=== PATIENT | female | born 1990 | race Caucasian/White ===

== ENCOUNTER 2021-11-05 09:36 | Inpatient (IN) ==
[2021-11-05] MEDS ORDERED: *HR* Nalbuphine 10 MG/ML AMPUL IV PRN (10:07)
[2021-11-05] MEDS ORDERED: Ondansetron 4 MG/2 ML VIAL IVP PRN ×2 (10:07→11:25)
[2021-11-05] MEDS ORDERED: Metoclopramide 10 MG/2 ML VIAL IVP PRN (10:07)
[2021-11-05] MEDS ORDERED: Famotidine 20 MG/2 ML VIAL IVP PRN (10:07)
[2021-11-05] MEDS ORDERED: Lidocaine 1% 20 ML MDV ID PRN (10:07)
[2021-11-05] MEDS ORDERED: Azithromycin 500 MG in 0.9 % Sodium Chloride 250 ML IVPB PRN (10:07)
[2021-11-05] MEDS ORDERED: Naloxone 0.4 MG/ML INJ IVP PRN ×2 (10:07→11:25)
[2021-11-05] MEDS ORDERED: EPHEDrine 50 MG/ML VIAL IVP PRN (11:25)
[2021-11-05] MEDS ORDERED: Ropivacaine/PF 0.2% 20 ML VIAL EP ONE (11:25)
[2021-11-05] MEDS ORDERED: *HR* FentaNYL (PF) 100 MCG/2 ML VIAL EP ONE (11:25)
[2021-11-05] MEDS ORDERED: Epidural Premix (fent/bupiv) 110 ML EP SCH (11:30)
[2021-11-05 12:34] LABS: Basophils % 0.1 %; Eosinophils % 0.4 %; Hematocrit 41.2 % (35.3-44.9); Hemoglobin 13.9 g/dL (11.5-15.4); Immature Granulocytes % 0.4 % (0-4); Lymphocytes # 1.2 K/mcL (0.6-4.6); Mean Corpuscular HGB Conc 33.7 g/dL (31.6-35.5); Mean Corpuscular Hemoglobin 30.7 pg (28.0-33.3); Mean Corpuscular Volume 90.9 fL (83.0-100.0); Mean Platelet Volume 10.9 fL (9.4-12.4); Monocytes # 0.6 K/mcL (0.0-1.3); Monocytes % 7.9 %; Platelet Count 162 K/mcL (140-400); Red Blood Count 4.53 M/mcL (3.82-4.97); Red Cell Distribution Width 13.2 % (11.5-14.5); Segmented Neutrophils % 76.2 %; White Blood Count 7.9 K/mcL (4.3-11.1)
[2021-11-05 12:44] LABS: Amphetamine Screen,Urine Negative ng/mL (Cutoff=1000); Barbiturate Screen,Urine Negative ng/mL (Cutoff=200); Benzodiazepines Screen,Urine Negative ng/mL (Cutoff=200); Cannabinoid Screen,Urine Negative ng/mL (Cutoff = 50); Cocaine Screen,Urine Negative ng/mL (Cutoff= 300); Opiate Screen,Urine Negative ng/mL (Cutoff=300); Phencyclidine Screen,Urine Negative ng/mL (Cutoff=25)
[2021-11-05] MEDS ORDERED: Oxytocin 20 units/ LR 1000 mL 20 UNIT/1,000 ML BAG IVC ONE (13:08)
[2021-11-05 13:14] LABS: Influenza A PCR Negative (Negative); Influenza B PCR Negative (Negative); Resp. Syncytial Virus PCR Negative (Negative)
[2021-11-05 13:15] LABS: SARS-CoV-2 by PCR (In House) Negative (Negative)
[2021-11-05] MEDS: Ringers Solution, Lactated 1,000 ML IVC SCH ×2 (13:26→21:26)
[2021-11-05] MEDS ORDERED: Penicillin G Potassium 5,000,000 UNIT in 0.9 % Sodium Chloride Mini Bag 100 ML IVPB ONE (15:02)
[2021-11-05] MEDS ORDERED: Ropivacaine/PF 0.2% 20 ML VIAL ONE (18:38)
[2021-11-05] MEDS: Penicillin G Potassium 2,500,000 UNIT/105 ML MLS IVPB SCH (19:36)
[2021-11-06] MEDS: Penicillin G Potassium 2,500,000 UNIT/105 ML MLS IVPB SCH (00:11)
[2021-11-06] MEDS: Ringers Solution, Lactated 1,000 ML IVC SCH (03:34)
[2021-11-06] MEDS ORDERED: Oxytocin 20 units/ LR 1000 mL 20 UNIT/1,000 ML BAG IVC ONE ×2 (04:58→05:17)
[2021-11-06] MEDS ORDERED: Acetaminophen 325 MG TABLET PO SCH (05:17)
[2021-11-06] MEDS ORDERED: Rho Immune Globulin 1,500 UNIT SYRINGE IM PRN (05:17)
[2021-11-06] MEDS ORDERED: Oxytocin 20 units/ LR 1000 mL 20 UNIT/1,000 ML BAG IVC SCH (05:17)
[2021-11-06] MEDS ORDERED: Lanolin 7 G OINT...G. TP PRN (05:17)
[2021-11-06] MEDS ORDERED: Measles/Mumps/Rubella Vacc 0.5 ML VIAL SQ PRN (05:17)
[2021-11-06] MEDS ORDERED: Benzocaine/Menthol 56 GM AEROSOL SPRAY TP PRN (05:17)
[2021-11-06] MEDS ORDERED: Ondansetron ODT 4 MG TAB.RAPDIS SL PRN (06:00)
[2021-11-06] MEDS ORDERED: Ibuprofen 600 MG TABLET PO SCH (07:26)
[2021-11-06] MEDS ORDERED: VITAMIN K PO SCH (09:00)
[2021-11-06] MEDS ORDERED: IRON PO SCH (09:00)
[2021-11-06] MEDS ORDERED: MULTIVIT MIN PO SCH (09:00)
[2021-11-06] MEDS ORDERED: [UNRECOGNIZED DRUG - OTHER] PO SCH (09:00)
[2021-11-06] MEDS ORDERED: Prenatal Vit/FA 1 EACH TABLET PO SCH (09:00)
[2021-11-06 15:02] VITALS: O2SAT 98
[2021-11-06 17:50] VITALS: BP 130/88; PULSE 84; TEMP 98
[2021-11-06] MEDS ORDERED: Methylergonovine 0.2 MG/ML AMPUL IM ONE (17:52)
== END 2021-11-06 17:53 | disposition home or self-care (01) | DRG 560 ==
LOC: 1NENULAB 09:36 → 1NENUOBS 11-06 06:22
PROVIDERS: ADMIT Student in an Organized Health Care Education/Training Program; ATTEND Student in an Organized Health Care Education/Training Program